=== PATIENT | male | born 1940 | race Caucasian/White ===

== ENCOUNTER 2022-04-05 15:52 | Inpatient (IN) | payer OTHER ==
[~2022-04-05] VITALS: Ht 167.6 cm; Wt 65.8 kg
[2022-04-05 16:01] VITALS: BP_SYST 129
--- NOTE | 2022-04-05 16:09 | NUR ---
Patient triaged and placed in waiting room. VSS and patient appears in no acute distress at this time. Accompanied by DAUGHTER, awaiting available bed, and MD notified of need for MSE.
--- NOTE | 2022-04-05 16:10 | NUR ---
PT BIB DAUGHTER REF'D BY [facility] FOR CP AND ABNORMAL EKG- CP STARTED LAST NIGHT INTO THIS AM- LEFT SIDED NON-RADIATING. PT HAS HX OF CARDIAC STENTS. PT IS AMBULATORY, AAOX4, VSS. CP ON ARRIVAL 05/17
--- NOTE | 2022-04-05 16:15 | NUR ---
ER DR. STRAUSS EXAMINING PT IN TRIAGE
[2022-04-05 17:08] LABS: BASOPHILS % (AUTO) 0.6 % (0.0-2.0); EOSINOPHILS # (AUTO) 0.1 K/uL (0.0-0.4); EOSINOPHILS % (AUTO) 1.7 % (0.0-4.0); HEMATOCRIT 38.7 % (36-54); LYMPHOCYTES # (AUTO) 0.9 K/uL (1.0-5.5); MEAN CORPUSCULAR HEMOGLOBIN 31 pg (27-31); MEAN CORPUSCULAR HGB CONC 34 % (32-36); MEAN CORPUSCULAR VOLUME 93 fL (79.0-98.0); MONOCYTES # (AUTO) 0.6 K/uL (0.0-1.0); MONOCYTES % (AUTO) 10.1 % (1.7-9.3); NEUTROPHILS # (AUTO) 4.2 K/uL (1.8-7.7); NEUTROPHILS % (AUTO) 72.6 % (40.0-70.0); PLATELET COUNT (AUTO) 176 K/uL (130-430); RED BLOOD CELL COUNT(AUTO) 4.17 MIL/uL (4.2-6.2); RED CELL DISTRIBUTION WIDTH 13.4 % (9.0-15.0); WHITE BLOOD COUNT (AUTO) 5.7 K/uL (4.8-10.8)
[2022-04-05 18:05] LABS: ANION GAP 9 (5-15); CALCIUM 9.2 mg/dL (8.4-11.0); CHLORIDE 106 mmol/L (98-107); CREATININE 1.17 mg/dL (0.55-1.30); GLUCOSE 108 mg/dL (70-99); UREA NITROGEN, BLOOD 33 mg/dL (8-21)
[2022-04-05 18:14] LABS: ALANINE AMINOTRANSFERASE 30 U/L (12-78); ALBUMIN 4.1 g/dL (3.4-4.8); ASPARTATE AMINOTRANSFERASE 37 U/L (10-37); TOTAL BILIRUBIN 0.5 mg/dL (0.0-1.0)
--- NOTE | 2022-04-05 20:43 | NUR ---
PATIENT MOVED INTO ROOM #5, DAUGHTER AT BEDSIDE UPDATED ON PLAN OF CARE. #20G ESTABLISHED IN RIGHT AC AREA, BLOOD COLLECTED AND SENT TO LAB. ASSISTED INTO POSITION OF COMFORT. WILL CONTINUE TO MONITOR, SIDE RAIL UP.
--- NOTE | 2022-04-05 21:10 | NUR ---
COVID 19 TEST SWAB SAMPLE COLLECTED AND TAKEN TO THE LAB FOR ANALYSIS
--- NOTE | 2022-04-05 21:33 | NUR ---
JUAN ALBERTO MORRISSEY INFORMED OF TROP. OF 94, NO NEW ORDERS.
[2022-04-05] MEDS ORDERED: ASPIRIN 81 MG TABLET(ECOTRIN) PO ONE (21:45)
--- NOTE | 2022-04-06 00:25 | NUR ---
SLEEPING, EASY TO AROUSE, FAMILY REMAINS AT BEDSIDE, NO S/S OF ANY DISTRESS NOTED.
--- NOTE | 2022-04-06 02:55 | NUR ---
REMAINS EASY TO AROUSE, FAMILY STILL REMAINS AT BEDSIDE, NO VOICED C/O PAIN OR DISCOMFORT, NO CHANGE IN PRIMARY ASSESSMENT. SIDE RAILS UP WILL CONTINUE TO MONITOR.
[2022-04-06] MEDS ORDERED: HYDROcodone/ACETAMIN 5-325 MG TAB (NORCO/ VICODIN) PO PRN (04:30)
[2022-04-06] MEDS ORDERED: HYDROcodone/ACETAMIN 10-325 MG TAB PO PRN (04:30)
[2022-04-06] MEDS ORDERED: NALOXONE HCL 0.4 MG/ML AMP (NARCAN) IVP PRN ×2 (04:30)
[2022-04-06] MEDS ORDERED: ACETAMINOPHEN 325 MG TABLET PO PRN ×2 (04:30→06:30)
[2022-04-06] MEDS ORDERED: ONDANSETRON HCL 4 MG/2 ML VIAL IVP PRN (04:30)
[2022-04-06] MEDS ORDERED: NORMAL SALINE 5 ML DISP.SYRIN IVF SCH ×2 (06:00)
--- NOTE | 2022-04-06 06:05 | NUR ---
PATIENT SLEEPING, REMAINS EASY TO AROUSE, FAMILY REMAINS AT BEDSIDE, NO CHANGE IN PRIMARY ASSESSMENT, ASSISTED INTO POSITION OF COMFORT.
--- NOTE | 2022-04-06 07:26 | NUR ---
REPORT GIVEN TO CAMRON, PATIENT REMAINS STABLE.
[2022-04-06 07:46] LABS: THYROID STIMULATING HORMONE 1.8 uIu/mL (0.34-4.82)
--- NOTE | 2022-04-06 09:41 | NUR ---
Instructed community living instructor to page admitting doctor. Pt's daughter is anxious and irritable. Pt's daughter desires for pt to be discharged and/or an update in regards to results and plan of care.
--- NOTE | 2022-04-06 10:00 | NUR ---
Dr. Charles speaking directly with patient's daughter.
[2022-04-06 11:15] VITALS: BP_SYST 117
--- NOTE | 2022-04-06 11:24 | NUR ---
Spoke with admiting physician Dr. Charles. NOtified by admit doctor that if patient is cleared from a cardiology standpoint patient may be discharged. Passed message to physician anesthetic assistant Stone Nova that if patient is cleared by cardiology standpoint communicate with admiting doctor so that discharge may take place.
[2022-04-06] MEDS ORDERED: ISOSORBIDE MONONITRATE 30 MG TAB.ER.24H PO ONE (12:15)
[2022-04-06] MEDS ORDERED: ROSUVASTATIN CALCIUM 5 MG/TAB (CRESTOR) PO SCH (12:15)
[2022-04-06] MEDS ORDERED: EZETIMIBE 10 MG TABLET PO ONE (12:15)
[2022-04-06] MEDS ORDERED: ATORVASTATIN 20 MG TABLET PO ONE (12:30)
--- NOTE | 2022-04-06 14:12 | NUR ---
Paged Dr. Charles (cardiology). Attempting to reach Ashley Benedict. Pt's daughter states that Stone said that he would come back and talk to her and let her know what's the next step. Daughter visibly angry. Pt's daughter pacing back and forth and upset. Updated pt's daughter that consulting group has been paged and that I am waiting on a return phone call.
--- NOTE | 2022-04-06 14:50 | NUR ---
Pt & patient's daughter left AMA. Iv d/c'd with catheter tip intact. Gauze and tape placed. Pt tolerated well.
--- NOTE | 2022-04-06 14:55 | NUR ---
NOTIFIED DR. BOLES PT LEFT AMA.
--- NOTE | 2022-04-06 15:08 | NUR ---
Patient does not wish to proceed with medical care recommended by Dr. Charles. Patient and patient's daughter given information related to possible complications, up to and including , which could occur as a result of leaving hospital at this time. Patient & patient's daughter verbalizes understanding of risks involved leaving against medical advice. Patient's daughter has signed AMA form earlier.
[2022-04-06] MEDS ORDERED: METOPROLOL SUCCINATE 25 MG TAB.SR.24H (TOPROL XL) PO ONE (18:00)
[2022-04-07] MEDS ORDERED: METOPROLOL SUCCINATE 25 MG TAB.SR.24H (TOPROL XL) PO SCH (09:00)
[2022-04-07] MEDS ORDERED: EZETIMIBE 10 MG TABLET PO SCH (09:00)
[2022-04-07] MEDS ORDERED: ISOSORBIDE MONONITRATE 30 MG TAB.ER.24H PO SCH (09:00)
[2022-04-07] MEDS ORDERED: ATORVASTATIN 20 MG TABLET PO SCH (09:00)
== END 2022-04-06 14:50 | disposition left against medical advice (07) | DRG 313 ==
LOC: SED 15:52 → STU 20:32
PROVIDERS: ADMIT Preventive Medicine Preventive Medicine/Occupational Environmental Medicine; ATTEND Preventive Medicine Preventive Medicine/Occupational Environmental Medicine
DX: R07.9 Chest pain, unspecified (principal); I25.10 Atherosclerotic heart disease of native coronary artery without angina pectoris; I10 Essential (primary) hypertension; E78.5 Hyperlipidemia, unspecified; Z20.822 Contact with and (suspected) exposure to COVID-19; I25.2 Old myocardial infarction; Z88.8 Allergy status to other drugs, medicaments and biological substances; Z79.899 Other long term (current) drug therapy; Z95.5 Presence of coronary angioplasty implant and graft
CPT/HCPCS: 36415; 71045; 80053; 80061; 83735; 83880; 84443; 84484; 85025; 93005; 99285; G0378